=== PATIENT | male | born 1995 | race Caucasian/White ===

== ENCOUNTER 2019-06-11 10:28 | Emergency (ER) | payer SELFPAY ==
[2019-06-11 10:42] VITALS: BP 143/58; PULSE 98; RESP 17; TEMP 37.4; O2SAT 96; BMI 26.9
[2019-06-11 10:54] VITALS: TEMP 37.4
--- NOTE | 2019-06-11 10:59 | ED_ITS ---
HPI - Nausea/Vomiting/Diarrhea General: Chief complaint: Nausea/Vomiting/Diarrhea Stated complaint: N/V AFTER FINDING A TICK ON GROIN Time Seen by Provider: 06/11/19 10:45 History of Present Illness: HPI Narrative: Patient is a 24-year-old male who comes to the ED with nausea and vomiting. Patient states that yesterday he was in the shower and he found a Tick on him that was near his groin. He removed the tick and he says later in the evening he started developing a fever, chills nausea and vomiting. Patient has vomited twice since yesterday. Patient states that today he feels little better. Denies any diarrhea, cough, shortness of breath, chest pain or any other upper respiratory symptoms. Associated nausea: No Associated symtoms: Denies change in vision, chest pain, dysuria, fatigue, headache(s), nausea or palpitations Review of Systems Const: Reports: fever and chills; Denies: fatigue Eyes: Denies: change in vision or eye discomfort ENMT: Denies: throat pain, painful swallowing, nasal discharge or nasal congestion Card: Denies: chest pain, palpitations, edema, swelling of feet/ankles, shortness of breath on exertion or shortness of breath when lying down Resp: Denies: shortness of breath, productive cough or non-productive cough GI: Denies: abdominal pain, nausea, vomiting, diarrhea, constipation or blood in stool : Denies: flank pain, difficulty urinating, painful urination or blood in urine Musc: Denies: neck pain, back pain or extremity swelling Skin/Breast: Denies: rash or new lesion Neuro: Denies: headache, numbness in extremities or weakness in extremities PFS ED PFSH: Social History Smoking and tobacco status: current every day smoker Physical Exam Narrative: EXAM NARRATIVE: Patient is a 24-year-old male who is sitting comfortably on the exam bed when I enter the room. He is showing no signs of acute distress or any respiratory distress. Const: COMMON NORMALS: oriented x3 HENMT: COMMON NORMALS: normocephalic HEAD & SCALP: normocephalic MOUTH: oral and palatal mucosa normal THROAT: posterior oropharynx normal and uvula midline Neck/C-Spine: COMMON NORMALS: supple GENERAL: Yes normal visual inspection Lymph: LYMPHATIC: no lymphadenopathy noted (no cervical lymphadenopathy noted.) Resp: COMMON NORMALS: normal respiratory effort, no retractions, no use of accessory muscles and clear to auscultation bilaterally AUSCULTATION: clear to auscultation bilaterally Cardio: COMMON NORMALS: regular rate, regular rhythm, S1 normal heart sound, S2 normal heart sound, no gallops, no clicks, no murmurs and peripheral pulses 2+ throughout RATE: regular rate RHYTHM: regular rhythm HEART SOUNDS: S1 normal and S2 normal PERIPHERAL PULSES: pulses 2+ throughout GI: COMMON NORMALS: normal to inspection, nondistended, normoactive bowel sounds, soft to palpation, non-tender and no masses PALPATION: Yes soft : COMMON NORMALS: Yes no CVA tenderness BLADDER/KIDNEY EXAM: Yes no CVA tenderness Back/Pelvis: COMMON NORMALS: no CVA tenderness Extremity: COMMON NORMALS: normal to inspection and normal capillary refill Neuro: COMMON NORMALS: oriented x3 and moves all extremities Skin: LESIONS: lesion noted (Right Groin-From tick bite) Right Groin from tick bite Lesion type: Yes papule Lesion size (cm): 0.2 Lesion location: right groin Lesion distribution: Yes other (1 spot where tick was removed) Lesion color: Yes red (No target lesion identified) Lesion consistency: Yes fixed Lesion surface: Yes dry, Yes raised, No pointed, No draining and No necrotic Lesion border: Yes smooth and No surrounding erythema Lesion tenderness: Yes nontender Lesion finding consistent with: Yes other (insect bite) Course Reevaluation(s): Reevaluation #1: After IV fluids and Zofran patient reports that his nausea is went away. He has not had any episodes of vomiting while here on the unit. Patient's said he is ready to go home and rest. Time: 12:00 Vital Signs: Vital signs: Vital Signs Temperature 99.3 F 06/11/19 10:54 Pulse Rate 78 06/11/19 12:32 Respiratory Rate 16 06/11/19 12:32 Blood Pressure 130/75 06/11/19 12:32 Pulse Oximetry 97 06/11/19 12:32 MDM - Nausea/Vomiting/Diarrhea MDM Narrative: Medical decision making narrative: Patient is a 24-year-old male who comes to the ED with nausea and vomiting. Patient has vomited twice since yesterday. He also had a tick bite yesterday and he was able to remove the tick and the tick was fully intact when he removed it. Physical exam: Patient is sitting comfortably on the exam bed when I enter the room. He is showing no signs of acute distress or acute respiratory distress. The rest of the physical exam was normal. I examined the area where tick bite occurred and tick was removed. There was a small red papular lesion, with no drainage or warmth. CBC, CMP, lipase were normal. Influenza test was negative. Patient's nausea symptoms improved after Zofran and IV fluids. He had no episodes of vomiting while here in the ED. patient was given the recommended Lyme's disease prophylactic dose of doxycycline while here in the ED. patient was diagnosed w ith gastroenteritis and given a prescription for Zofran to help with any nausea vomiting. I told patient to follow-up with PCP in 7 days for reevaluation. I told patient to monitor tick bite site and to return to ED if he notices any change in symptoms. Patient understood and agreed with plan. Lab Data: Attestation: I reviewed the patient's lab results. Labs: Lab Results 06/11/19 06/11/19 06/11/19 Range/Units 11:15 11:15 11:20 WBC 7.6 (4.0-10.0) 10^3/ uL RBC 4.96 (4.1-5.3) 10^6/u L Hgb 14.5 (11.7-16.6) g/dL Hct 42.2 (42.0-52.0) % MCV 85.1 (80-94) fL MCH 29.2 (28.0-34.0) pg MCHC 34.4 (30.0-36.0) g/dL RDW 12.1 (12.1-15.1) % Plt Count 149 (130-400) 10^3/c mm MPV 10.0 (7.4-10.4) fL Neut % (Auto) 68.6 % Lymph % (Auto) 15.7 % Trinity % (Auto) 14.4 % Eos % (Auto) 0.4 % Baso % (Auto) 0.5 % Neut # (Auto) 5.2 (1.8-7.7) 10^3/u L Lymph # (Auto) 1.2 (0.8-4.8) 10^3/u L Trinity # (Auto) 1.1 H (0.2-0.9) 10^3/u L Eos # (Auto) 0.0 (0.0-0.8) 10^3/u L Baso # (Auto) 0.0 (0.0-0.1) 10^3/u L Nucleated RBC % (a uto) 0 % Nucleated RBCs # 0.0 /100WBC Sodium 135 L (136-145) mmol/L Potassium 3.6 (3.5-5.1) mmol/L Chloride 98 (98-107) mmol/L Carbon Dioxide 23 (22-29) mmol/L Anion Gap 17.6 (5-19) BUN 9 (6-20) mg/dL Creatinine 0.9 (0.7-1.2) mg/dL GFR Calculation 105.5 (90-130) mL/min Glucose 99 (65-115) mg/dL Calculated Osmolal ity 276 L (285-295) mOsm/k g Calcium 9.6 (8.5-10.5) mg/dL Total Bilirubin 0.5 (0.15-1.2) mg/dL AST 21 (0-40) U/L ALT 15 (0-41) U/L Alkaline Phosphata se 53 (40-130) IU/L Total Protein 6.9 (6.6-8.7) g/dL Albumin 4.8 (3.5-5.2) g/dL Globulin 2.1 (1.3-4.6) g/dL Lipase 18 (13-60) U/L Influenza Type A A g Negative (Negative) POC Influenza B Ag Negative (Negative) Discharge Plan Discharge Patient Disposition: Home, Self-Care Clinical Impression: Gastroenteritis Condition: Stable Prescriptions: New Zofran 4 mg tablet 4 mg PO Q8H PRN (Reason: nausea and vomiting) 4 Days Qty: 12 RF: 0 Discharge Orders: Discharge Order (Routine); Ordered 06/11/19 Ordered By: Angelito Quezada Discharge Diet: Regular Discharge Activity: Resume usual activity Patient Instructions: Tick Bite (ED) Activity Restrictions/Additional Instructions: Follow-up with your PCP in 7 days for reevaluation. Drink plenty of fluids and stay hydrated. Take the Zofran as needed for nausea and vomiting. Take Tylenol or ibuprofen as needed for any fevers. Watch tick bite area and monitored for any signs of infection such as redness, warmth or drainage. Also note any change in the tick bite area. You were given the one-time prophylactic antibiotic dose for possible exposure to Lyme's disease. 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
[2019-06-11] MEDS: sodium chloride 0.9% 1,000 ML 999 ML IV (11:17)
[2019-06-11] MEDS: ondansetron 2 mg/ML SDV 2 mL 4 MG IVP (11:17)
[2019-06-11 11:28] LABS: Basophils % 0.5 %; Eosinophils % 0.4 %; Hematocrit 42.2 % (42.0-52.0); Hemoglobin 14.5 g/dL (11.7-16.6); Lymphocytes # 1.2 10^3/uL (0.8-4.8); Lymphocytes % 15.7 %; Mean Corpuscular HGB Conc 34.4 g/dL (30.0-36.0); Mean Corpuscular Hemoglobin 29.2 pg (28.0-34.0); Mean Corpuscular Volume 85.1 fL (80-94); Monocytes # 1.1 10^3/uL (0.2-0.9); Monocytes % 14.4 %; Neutrophils # 5.2 10^3/uL (1.8-7.7); Neutrophils % 68.6 %; Nucleated Red Blood Cells % 0 %; Platelet Count 149 10^3/cmm (130-400); Red Blood Count 4.96 10^6/uL (4.1-5.3); Red Cell Distribution Width 12.1 % (12.1-15.1); White Blood Count 7.6 10^3/uL (4.0-10.0)
[2019-06-11 11:42] LABS: Anion Gap 17.6 (5-19); Blood Urea Nitrogen 9 mg/dL (6-20); Carbon Dioxide 23 mmol/L (22-29); Chloride 98 mmol/L (98-107); Potassium 3.6 mmol/L (3.5-5.1); Sodium 135 mmol/L (136-145)
[2019-06-11 11:43] LABS: Alanine Aminotransferase 15 U/L (0-41); Albumin Level 4.8 g/dL (3.5-5.2); Alkaline Phosphatase 53 IU/L (40-130); Aspartate Amino Transferase 21 U/L (0-40); Calcium 9.6 mg/dL (8.5-10.5); Globulin 2.1 g/dL (1.3-4.6); Glomerular Filtration Rate 105.5 mL/min (90-130); Glucose 99 mg/dL (65-115); Lipase 18 U/L (13-60); Osmolality Calculated 276 mOsm/kg (285-295); Total Bilirubin 0.5 mg/dL (0.15-1.2); Total Protein 6.9 g/dL (6.6-8.7)
[2019-06-11 11:46] LABS: Influenza A by IFA Negative (Negative); Influenza B by IFA Negative (Negative)
[2019-06-11] MEDS: doxycycline 100 mg Tablet 200 MG PO (12:31)
[2019-06-11 12:32] VITALS: BP 130/75; PULSE 78; RESP 16; O2SAT 97
[2019-06-14 12:31] LABS: Lymes IGG WB <0.90 index
== END 2019-06-11 12:32 | disposition home or self-care (01) ==
LOC: ER 12:37
PROVIDERS: Emergency Provider Physician Assistant
DX: K52.9 Noninfective gastroenteritis and colitis, unspecified (principal); F17.200 Nicotine dependence, unspecified, uncomplicated
CPT/HCPCS: 12345; 36415; 80053; 83690; 85025; 86617; 87040; 87804; 96360; 96361; 96374; 96375; 99283; A9270; J2405; J7030